=== PATIENT | female | born 1975 | race Caucasian/White ===

== ENCOUNTER 2017-03-01 21:31 | Emergency (ER) | payer MEDICAID, OTHER ==
[2017-03-01 21:31] VITALS: BMI 27.8
[2017-03-01 22:03] VITALS: BP 105/65; TEMP 97.9
[2017-03-01 22:52] LABS: BASO % 0.5 % (0.0-2.0); EOS # 0.3 K/uL (0.0-0.7); EOS % 3.4 % (0.0-4.0); HEMATOCRIT 39.5 % (34.0-47.0); LYMPH # 2.1 K/uL (1.0-4.3); LYMPH % 27.6 % (20.0-40.0); MEAN CELL VOLUME 90.5 fL (81.0-99.0); MEAN CORPUSCULAR HEMOGLOBIN 30.9 pg (27.0-31.0); MEAN CORPUSCULAR HGB CONC 34.1 g/dL (33.0-37.0); MEAN PLATELET VOLUME 7.6 fL (7.2-11.7); MONO # 0.5 K/uL (0.0-0.8); MONO % 6.4 % (0.0-10.0); RED CELL DISTRIBUTION WIDTH 12.1 % (11.5-14.5); WHITE BLOOD COUNT 7.8 K/uL (4.8-10.8)
[2017-03-01] MEDS ORDERED: Clindamycin 300 MG in Sodium Chloride 0.9% 50 ML IVPB STA (22:56)
[2017-03-01 23:00] LABS: CHLORIDE 98 mmol/L (98-107)
[2017-03-01 23:01] LABS: POTASSIUM 3.7 mmol/L (3.6-5.2); SODIUM 138 mmol/L (132-148)
[2017-03-01] MEDS ORDERED: Clindamycin 600mg/50ml D5W 600 MG/50 ML VIAL IVPB ONE (23:01)
[2017-03-01 23:03] LABS: BILIRUBIN,TOTAL 0.4 mg/dL (0.2-1.3); GFR AFRICAN-AMERICAN > 60
[2017-03-01 23:04] LABS: ALB/GLOB RATIO 1.2 (1.0-2.1); ALKALINE PHOSPHATASE 60 U/L (38-126); ALT/SGPT 11 U/L (9-52); AST/SGOT 23 U/L (14-36); BLOOD UREA NITROGEN 10 mg/dL (7-17); CALCIUM 8.8 mg/dl (8.6-10.4); CARBON DIOXIDE 26 mmol/L (22-30); GLUCOSE,RANDOM 92 mg/dL (65-105); TOTAL PROTEIN 7.6 g/dL (6.3-8.3)
--- NOTE | 2017-03-01 23:07 | C.PDOC ---
History Of Present Illness Patient is a 41 year old female who presents to the ER with a complaint of intermittent episodes of pain and inflammation to the right leg. Patient states she had cellulitis last year and was treated at [facility]. Patient saw PMD last month for same complaint, PMD gave Rx for antibiotics. Patient states she has relief when she applies ice to the right leg. Denies any fever, nausea, or chills. Time Seen by Provider: 03/01/17 22:13 Chief Complaint (Nursing): Lower Extremity Problem/Injury History Per: Patient History/Exam Limitations: no limitations Onset/Duration Of Symptoms: Days (Month), Intermittent Episodes Current Symptoms Are (Timing): Still Present Recent travel outside of the [place]: No Additional History Per: Patient Past Medical History Reviewed: Historical Data, Nursing Documentation, Vital Signs Vital Signs: Last Vital Signs Temp 97.9 F 03/01/17 21:58 Pulse 83 03/02/17 00:15 Resp 18 03/02/17 00:15 BP 105/65 03/01/17 21:58 Pulse Ox 100 03/02/17 00:15 - Medical History PMH: No Chronic Diseases - [facility] Procedures ARTIF RUPT MEMBRANES NEC (08/06/14) EPISIOTOMY (08/06/14) SPINAL PATCH (08/06/14) Family History: States: Unknown Family Hx - Social History Hx Alcohol Use: No Hx Substance Use: No - Immunization History Hx Tetanus Toxoid Vaccination: No Hx Influenza Vaccination: No Hx Pneumococcal Vaccination: No Review Of Systems Constitutional: Negative for: Fever, Chills Gastrointestinal: Negative for: Nausea Musculoskeletal: Positive for: Leg Pain Physical Exam - Physical Exam Appears: Well, Non-toxic Skin: Normal Color, Warm, Dry Head: Atraumatic, Normacephalic Eye(s): bilateral: Normal Inspection, PERRL, EOMI Oral Mucosa: Moist Cardiovascular: Rhythm Regular Respiratory: Normal Breath Sounds Extremity: No Calf Tenderness, Capillary Refill (Normal), Other (Minimal localized erythema. Mild induration to lateral aspect of right leg distal to knee. No proximal or distal streaking.) Pulses: Left Femoral: Normal, Right Femoral: Normal, Left Dorsalis Pedis: Normal , Right Dorsalis Pedis: Normal Neurological/Psych: Oriented x3, Normal Speech, Normal Cognition ED Course And Treatment - Laboratory Results Result Diagrams: 03/01/17 22:50 03/01/17 22:50 O2 Sat by Pulse Oximetry: 98 Pulse Ox Interpretation: Normal Progress Note: Clindamycin IV administered. Pt fees better, not in pain and in NAD. Pt received clindamycin IV and will be given PO Abx and d/c home Reevaluation Time: 23:45 Reassessment Condition: Improved Disposition Counseled Patient/Family Regarding: Diagnosis, Need For Followup, Rx Given - Disposition Disposition: HOME/ ROUTINE Disposition Time: 23:45 Condition: STABLE Additional Instructions: Please follow up with PMD in 2 days wound check Leg elevation Apply Warm compress Return to ER if worse Prescriptions: Clindamycin [Cleocin] 300 mg PO QID #28 cap Instructions: Cellulitis (ED) - Clinical Impression Clinical Impression: Cellulitis, leg - Scribe Statement The provider has reviewed the documentation as recorded by the Scribjac Hyde All medical record entries made by the Nbaibjac were at my direction and personally dictated by me. I have reviewed the chart and agree that the record accurately reflects my personal performance of the history, physical exam, medical decision making, and the department course for this patient. I have also personally directed, reviewed, and agree with the discharge instructions and disposition.
[2017-03-02 00:19] VITALS: PULSE 83; RESP 18
[2017-03-02 04:32] VITALS: O2SAT 98
== END 2017-03-02 00:15 | disposition home or self-care (01) ==
LOC: C.ER 21:31
DX: L03.115 Cellulitis of right lower limb (principal)

== ENCOUNTER 2017-10-07 17:08 | Inpatient (IN) | payer MEDICAID ==
[2017-08-27 08:27] VITALS: BMI 27.8
[2017-10-07] MEDS ORDERED: Penicillin G 5 Million Unit Vial IVPB ONE (17:21)
[2017-10-07] MEDS ORDERED: Lactated Ringer's 1,000 ML IV SCH (17:30)
[2017-10-07] MEDS ORDERED: Oxytocin 10 Units/ml Inj ONE (17:31)
[2017-10-07] MEDS ORDERED: Oxytocin 20 units in LR 2,000 ML IV ONE (17:39)
[2017-10-07] MEDS ORDERED: Penicillin G Potassium 5 MU in Dextrose 5% In Water 50 ML IVPB ONE (18:00)
[2017-10-07] MEDS ORDERED: Penicillin G Potassium 5 MU in Sodium Chloride 0.9% 50 ML IVPB ONE (18:00)
[2017-10-07 18:08] LABS: BASO % 0.1 % (0.0-2.0); EOS # 0.1 K/uL (0.0-0.7); EOS % 1.1 % (0.0-4.0); HEMATOCRIT 39.6 % (34.0-47.0); LYMPH # 3.3 K/uL (1.0-4.3); LYMPH % 24.8 % (20.0-40.0); MEAN CELL VOLUME 89.1 fL (81.0-99.0); MEAN CORPUSCULAR HEMOGLOBIN 29.8 pg (27.0-31.0); MEAN CORPUSCULAR HGB CONC 33.4 g/dL (33.0-37.0); MEAN PLATELET VOLUME 9.1 fL (7.2-11.7); MONO # 0.6 K/uL (0.0-0.8); MONO % 4.8 % (0.0-10.0); RED CELL DISTRIBUTION WIDTH 14.5 % (11.5-14.5); WHITE BLOOD COUNT 13.2 K/uL (4.8-10.8)
[2017-10-07] MEDS ORDERED: Lidocaine 2% Inj (20ml) ONE (18:18)
[2017-10-07 18:28] LABS: ALB/GLOB RATIO 0.9 (1.0-2.1); ALKALINE PHOSPHATASE 134 U/L (38-126); ALT/SGPT 51 U/L (9-52); AST/SGOT 33 U/L (14-36); BILIRUBIN,TOTAL 0.3 mg/dL (0.2-1.3); BLOOD UREA NITROGEN 8 mg/dL (7-17); CALCIUM 8.3 mg/dl (8.6-10.4); CARBON DIOXIDE 23 mmol/L (22-30); CHLORIDE 103 mmol/L (98-107); GFR AFRICAN-AMERICAN > 60; GLUCOSE,RANDOM 99 mg/dL (65-105); POTASSIUM 3.5 mmol/L (3.6-5.2); SODIUM 135 mmol/L (132-148); TOTAL PROTEIN 7.5 g/dL (6.3-8.3)
[2017-10-07] MEDS ORDERED: Oxycodone/Acetaminophen 5/325 mg Tab PO PRN ×2 (18:33)
--- NOTE | 2017-10-07 19:19 | OBDS ---
DELIVERY PERSONNEL Delivery Doctor: Sean Gutierrez MD Assistant Signal Maintainer: Adeline Trejo RN Resident: Elise Jarrett MATERNAL INFORMATION Delivery Anesthesia: Local Medications in Delivery: Lidocaine 2% locally Estimated Blood Loss (ml): 300 Placenta Cultured: No Maternal Complications: None RN Comments: Liveborn Baby Boy. 9-9 Provider Comments: baby deliverd in jarad. end clean no com LABOR SUMMARY EDC: 10/21/2017 00:00 No. Babies in Womb: 1 Attempted: No Labor Anesthesia: None LABOR INFORMATION Reason for Induction: Not Applicable Onset of Labor: 10/07/2017 07:00 Complete Dilatation: 10/07/2017 17:51 Oxytocin: N/A Group B Beta Strep: Done, Result Unknown Antibiotics # of Doses: 1 Antibiotics Time of Last Dose: PEn G 5 mU IV @ 1754 Steroids Given: None Reason Steroids Not Administered: Not Applicable MEMBRANES Membranes Rupture Method: Spontaneous Rupture of Membranes: 10/07/2017 18:01 Length of Rupture (hrs): 0.38 Amniotic Fluid Color: Clear Amniotic Fluid Amount: Moderate Amniotic Fluid Odor: None STAGES OF LABOR Stage 1 hrs: 10 Stage 1 min: 51 Stage 2 hrs: 0 Stage 2 min: 33 Stage 3 hrs: 0 Stage 3 min: 26 Total Time in Labor hrs: 11 Total Time in Labor min: 50 VAGINAL DELIVERY Episiotomy: Right Mediolateral Laceration Type: None Laceration Repair: Yes Laceration Repair Note: repaired with 2 and 3 chromic Initial Vag Sponge Count: 10 Final Vag Sponge Count: 10 Initial Vag Sharps Count: 3 Final Vag Sharps Count: 3 Sponge Count Correct: Vaginal Sweep Performed Count Comment: with 2 needles for drawing medications BABY A INFORMATION Delivery Date/Time: 10/07/2017 18:24 Method of Delivery: Vaginal Born in Route : No : N/A Forceps: N/A Vacuum Extraction: N/A Shoulder Dystocia : No SHOULDER DYSTOCIA BABY A Infant Delivery Date/Time: 10/07/2017 18:24 PRESENTATION/POSITION BABY A Presentation: Cephalic Cephalic Presentation: Vertex Vertex Position: Right Occipital Anterior Breech Presentation: N/A PLACENTA INFORMATION BABY A Placenta Delivery Time : 10/07/2017 18:50 Placenta Method of Delivery: Spontaneous Placenta Status: Delivered SCORES BABY A Heart Rate 1 min: >100 bpm Resp Effort 1 min: Good Cry Reflex Irritability 1 min: Cough or Sneeze or Pulls Away Muscle Tone 1 min: Active Motion Color 1 min: Body [place], Extremities Blue Resuscitation Effort 1 min: N/A SCORE 1 MIN: 9 Heart Rate 5 min: >100 bpm Resp Effort 5 min: Good Cry Reflex Irritability 5 min: Cough or Sneeze or Pulls Away Muscle Tone 5 min: Active Motion Color 5 min: Body [place], Extremities Blue Resuscitation Effort 5 min: N/A SCORE 5 MIN: 9 INFORMATION BABY A Gestational Age at Delivery: 38.0 Gestational Status: Term Infant Outcome : Liveborn Condition : Stable Infant Sex: Male IDENTIFICATION/MEDS BABY A ID Band Number: [id number] ID Band Location: Left Leg; Left Arm Sensor Applied: Yes Sensor Number: [id number] Sensor Location : Cord Clamp Vitamin K Given : Not Given Erythromycin Given: Not Given WEIGHT/LENGTH BABY A Birthweight (gms): 3100 Infant Weight (lb): 6 Weight (oz): 13 Infant Length Inches: 18.75 Infant Length cms: 47.6 CORD INFORMATION BABY A No. Cord Vessels: 3 Nuchal Cord : Around Neck x1, Loose Cord Blood Taken: Yes Infant Suction: None; Mouth; Nose ASSESSMENT BABY A Infant Complications: None Physical Findings at Delivery: Within Normal Limits Respirations: Appears Normal Narcotics And/Or Vice Detective/ALS Called : Yes Care By: present at delivery Transferred To: Nursery
[2017-10-07 20:39] LABS: RBC URINE 41 /hpf (0-3); URINE BACTERIA OCC (<OCC); URINE BILIRUBIN NEGATIVE (NEGATIVE); URINE BLOOD 2+ (NEGATIVE); URINE COLOR Yellow (YELLOW); URINE GLUCOSE (UA) NORMAL (Normal); URINE KETONE NEGATIVE (NEGATIVE); URINE LEUKOCYTE ESTERASE NEG Leu/uL (Negative); URINE PROTEIN NEGATIVE (NEGATIVE); URINE UROBILINOGEN NORMAL mg/dL (0.2-1.0); WBC URINE 2 /hpf (0-5)
[2017-10-08 07:27] LABS: BASO % 0.1 % (0.0-2.0); EOS # 0.1 K/uL (0.0-0.7); EOS % 1.1 % (0.0-4.0); HEMATOCRIT 35.7 % (34.0-47.0); LYMPH # 3.4 K/uL (1.0-4.3); LYMPH % 25.4 % (20.0-40.0); MEAN CELL VOLUME 90.2 fL (81.0-99.0); MEAN CORPUSCULAR HEMOGLOBIN 29.8 pg (27.0-31.0); MEAN PLATELET VOLUME 8.8 fL (7.2-11.7); MONO # 0.7 K/uL (0.0-0.8); MONO % 5.3 % (0.0-10.0); NRBC % 0.1 % (0.0-2.0); RED CELL DISTRIBUTION WIDTH 14.3 % (11.5-14.5); WHITE BLOOD COUNT 13.5 K/uL (4.8-10.8)
[2017-10-08] MEDS: Benzocaine/Menthol 20%-0.5% Topical Spray (60 ml) TOP SCH ×2 (12:05→18:04)
--- NOTE | 2017-10-08 20:20 | OBPPN ---
Datetime: 10/08/2017 20:16 PP Pain Prov: Within normal limits PP Nausea Prov: Denies PP Flatus Prov: Yes PP BM Prov: No PP Heart Prov: Normal PP Lungs Prov: Normal PP Abdomen/Uterus Prov: Normal PP CVA Tenderness Prov: Normal PP Extremities Prov: Normal PP C/S Incision Prov: Not Applicable PP Progress Prov: Normal PP Impression Prov: Normal progression PP Plan Prov: Continue present management PP Progress Note Prov: S-patient deneis any complaints deneis nausea, vomiting, headache, chest pain, shortness of breath, numvbness or tingling in hands and feet O-VSS Afebrile Fundus firma nd below umbilicus extremities no calf tenderness A/P Patient at 38 wga s/p vaginal delivery PPD 1 doing well -continue routine pp care Vital Signs Provider PP: Reviewed; Within Normal Limits
[2017-10-09 00:54] VITALS: PULSE 60
[2017-10-09] MEDS: Benzocaine/Menthol 20%-0.5% Topical Spray (60 ml) TOP SCH (06:55)
--- NOTE | 2017-10-09 08:29 | CP.PCM.DIS ---
Provider - Provider Date of Admission: 10/07/17 17:22 Attending physician: Yaw Melgoza Consults: None Time Spent in preparation of Discharge (in minutes): 32 Diagnosis - Discharge Diagnosis (1) Spontaneous vaginal delivery Status: Resolved Priority: Medium Hospital Course - Lab Results Lab Results: Most Recent Lab Values WBC 13.5 K/uL (4.8-10.8) H 10/08/17 07:19 RBC 3.96 Mil/uL (3.80-5.20) 10/08/17 07:19 Hgb 11.8 g/dL (11.0-16.0) 10/08/17 07:19 Hct 35.7 % (34.0-47.0) 10/08/17 07:19 MCV 90.2 fL (81.0-99.0) 10/08/17 07:19 MCH 29.8 pg (27.0-31.0) 10/08/17 07:19 MCHC 33.0 g/dL (33.0-37.0) 10/08/17 07:19 RDW 14.3 % (11.5-14.5) 10/08/17 07:19 Plt Count 199 K/uL (130-400) 10/08/17 07:19 MPV 8.8 fL (7.2-11.7) 10/08/17 07:19 Neut % (Auto) 68.1 % (50.0-75.0) 10/08/17 07:19 Lymph % (Auto) 25.4 % (20.0-40.0) 10/08/17 07:19 [place] % (Auto) 5.3 % (0.0-10.0) 10/08/17 07:19 Eos % (Auto) 1.1 % (0.0-4.0) 10/08/17 07:19 Baso % (Auto) 0.1 % (0.0-2.0) 10/08/17 07:19 Neut # 9.2 K/uL (1.8-7.0) H 10/08/17 07:19 Lymph # 3.4 K/uL (1.0-4.3) 10/08/17 07:19 [place] # 0.7 K/uL (0.0-0.8) 10/08/17 07:19 Eos # 0.1 K/uL (0.0-0.7) 10/08/17 07:19 Baso # 0.0 K/uL (0.0-0.2) 10/08/17 07:19 Sodium 135 mmol/L (132-148) 10/07/17 17:54 Potassium 3.5 mmol/L (3.6-5.2) L 10/07/17 17:54 Chloride 103 mmol/L (98-107) 10/07/17 17:54 Carbon Dioxide 23 mmol/L (22-30) 10/07/17 17:54 Anion Gap 12 (10-20) 10/07/17 17:54 BUN 8 mg/dL (7-17) 10/07/17 17:54 Creatinine 0.6 mg/dL (0.7-1.2) L 10/07/17 17:54 Est GFR ( Amer) > 60 10/07/17 17:54 Est GFR (Non-Af Amer) > 60 10/07/17 17:54 Random Glucose 99 mg/dL (65-105) 10/07/17 17:54 Calcium 8.3 mg/dl (8.6-10.4) L 10/07/17 17:54 Total Bilirubin 0.3 mg/dL (0.2-1.3) 10/07/17 17:54 AST 33 U/L (14-36) 10/07/17 17:54 ALT 51 U/L (9-52) 10/07/17 17:54 Alkaline Phosphatase 134 U/L (38-126) H 10/07/17 17:54 Total Protein 7.5 g/dL (6.3-8.3) 10/07/17 17:54 Albumin 3.5 g/dL (3.5-5.0) 10/07/17 17:54 Globulin 4.0 gm/dL (2.2-3.9) H 10/07/17 17:54 Albumin/Globulin Ratio 0.9 (1.0-2.1) L 10/07/17 17:54 Urine Color Yellow (YELLOW) 10/07/17 20:07 Urine Clarity Clear (Clear) 10/07/17 20:07 Urine pH 6.0 (5.0-8.0) 10/07/17 20:07 Ur Specific [place] 1.019 (1.003-1.030) 10/07/17 20:07 Urine Protein Negative mg/dL (NEGATIVE) 10/07/17 20:07 Urine Glucose (UA) Normal mg/dL (Normal) 10/07/17 20:07 Urine Ketones Negative mg/dL (NEGATIVE) 10/07/17 20:07 Urine Blood 2+ (NEGATIVE) H 10/07/17 20:07 Urine Nitrate Negative (NEGATIVE) 10/07/17 20:07 Urine Bilirubin Negative (NEGATIVE) 10/07/17 20:07 Urine Urobilinogen Normal mg/dL (0.2-1.0) 10/07/17 20:07 Ur Leukocyte Esterase Neg [place]/uL (Negative) 10/07/17 20:07 Urine WBC (Auto) 2 /hpf (0-5) 10/07/17 20:07 Urine RBC (Auto) 41 /hpf (0-3) H 10/07/17 20:07 Ur Squamous Epith Cells 2 /hpf (0-5) 10/07/17 20:07 Urine Bacteria Occ (<OCC) H 10/07/17 20:07 RPR Nonreactive (NONREACTIVE) 10/07/17 17:54 Hep Bs Antigen Negative (NEGATIVE) 10/07/17 17:54 HIV 1&2 Antibody Screen Negative (NEGATIVE) 10/07/17 17:54 Blood Type AB POSITIVE 10/07/17 17:54 Antibody Screen Negative 10/07/17 17:54 - Hospital Course Hospital Course: This is a 42 year old F 38wga who delivered liveborn baby boy via spontaneous vaginal delivery in [facility] without complications. Delivery anesthesia was with local lidocaine 2%. Estimated blood loss was 300ml. Complete dilation occurred on 10/07/17 at 17:51 and rupture of membranes occurred at 18:01 spontaneously. Total time spent in labor was 50 minutes. A right mediolateral episiotomy was performed, repaired with 2 and 3 chromic. delivery date and time was 10/07 at 18:24. The patient was then moved to the unit and routine care was given. She had an uncomplicated course. Discharge Exam - Head Exam Head Exam: ATRAUMATIC, NORMAL INSPECTION - Eye Exam Eye Exam: EOMI - ENT Exam ENT Exam: Mucous Membranes Moist - Neck Exam Neck exam: Full Rom, Normal Inspection - Respiratory Exam Respiratory Exam: Clear to PA & Lateral, NORMAL BREATHING PATTERN. absent: Rales, Rhonchi, Wheezes - Cardiovascular Exam Cardiovascular Exam: REGULAR RHYTHM, +S1, +S2. absent: Bradycardia, Tachycardia , JVD, Systolic Murmur - GI/Abdominal Exam GI & Abdominal Exam: Normal Bowel Sounds, Soft. absent: Distended, Firm, Guarding, Tenderness - Exam Additional comments: Fundus 2 cm below the level of the umbilicus - Extremities Exam Extremities exam: normal inspection - Neurological Exam Neurological exam: Alert, Normal Gait, Oriented x3 - Psychiatric Exam Psychiatric exam: Normal Affect, Normal Mood - Skin Skin Exam: Intact, Normal Color, Warm Discharge Plan - Discharge Medications Prescriptions: Ibuprofen [Motrin] 600 mg PO Q6H PRN #30 tab PRN Reason: Pain, Mild (1-3) - Follow Up Plan Condition: GOOD Disposition: HOME/ ROUTINE Additional Instructions: 1. Patient is clear for discharge home 2. Pelvic rest x 6 weeks 3. Motrin prn pain 4. F/U with office within 6 weeks for visit
[2017-10-09 08:32] VITALS: BP 126/81; RESP 18; TEMP 97.5; O2SAT 100
--- NOTE | 2017-10-09 09:03 | OBPPN ---
Datetime: 10/09/2017 07:49 PP Pain Prov: Within normal limits PP Nausea Prov: Denies PP Flatus Prov: Yes PP BM Prov: No PP Heart Prov: Normal PP Lungs Prov: Normal PP Abdomen/Uterus Prov: Normal PP Lochia Prov: Normal PP Extremities Prov: Normal PP Progress Prov: Normal PP Comments Phys Exam Prov: Fundus firm below umbilicus Ext: no clubbing, cyanosis, edema PP Impression Prov: Normal progression PP Plan Prov: Continue present management; Discharge PP Progress Note Prov: Patient seen and examined at bedside. Per nursing no acute events overnight. Patient is doing well, pain is controlled. Lochia is mild. Ambulating and tolerating diet. Passing fl atus, no BM. Urinating without difficulty. Breast and bottle feeding. Denies headaches, dizziness, cp , palpitations, sob, urinary symptoms VSS Gen: AAOx3 CV: RRR Lungs: CTA B/L Abd: Soft, fundus firm below umbilicus Ext: No clubbing, cyanosis, edema; no calf tenderness Labs: 13.2>13.2/39.6<236 13.5>11.8/35.7<199 AB positive Rubella immune A/P: 42 year old at 38w0d s/p PPD#2 -Stable, afebrile -Pain contol prn -Encourage ambulation and hydration -Encourage breast feeding -Continue routine care -D/C home today - f/u with office in 6 weeks, pelvic rest x 6 weeks -Plan discussed with attending Deepti Leon DO PGY-1 Vital Signs Provider PP: Reviewed; Within Normal Limits
--- NOTE | 2017-10-09 09:06 | OBDCSUM ---
Datetime: 10/09/2017 08:03 Discharged to, Provider: Home Follow up at, Provider: Dr Watkins Disch Instr Activity: Normal activity Disch Instr Diet: Regular Discharge Instructions, Provider: Routine instructions given Discharge Diagnosis, Provider: Term Delivered Discharge Time: 10/09/2017 10:00 Follow up in weeks, Provider: 6 weeks Disch Activity Restrictions: No sexual activity; Nothing in vagina - Sublimity, tampons, douche Discharge Comment, Provider: Pelvic rest x 6 weeks
== END 2017-10-09 12:15 | disposition home or self-care (01) | DRG 373 ==
LOC: C.EROB 17:08 → C.4D 17:22 → C.4M 22:00
PROVIDERS: ADMIT Obstetrics & Gynecology; ATTEND Obstetrics & Gynecology
PROC: 0W8NXZZ Division of Female Perineum, External Approach (ICD-10-PCS; principal; 2017-10-07)
PROC: 10E0XZZ Delivery of Products of Conception, External Approach (ICD-10-PCS; 2017-10-07)
DX: O69.81X0 Labor and delivery complicated by cord around neck, without compression, not applicable or unspecified (principal); Z3A.38 38 weeks gestation of pregnancy; Z37.0 Single live birth